=== PATIENT | male | born 2000 | race Asian ===

== ENCOUNTER 2024-04-15 19:43 | Emergency (ER) | payer OTHER ==
[~2024-04-15] VITALS: Ht 170.2 cm; Wt 68.0 kg
[2024-04-15 19:47] VITALS: O2SAT 99
[2024-04-15] MEDS ORDERED: LIDO700A15 TP (21:32)
[2024-04-15] MEDS ORDERED: NAPR-1176 MT (21:32)
[2024-04-15] MEDS: KETOROLAC 15MG/ML VIAL IM ONE (21:36)
[2024-04-15 21:45] VITALS: BP 114/67; PULSE 85; RESP 17; TEMP 36.94740; O2SAT 100
== END 2024-04-15 23:53 | disposition home or self-care (01) ==
LOC: ER 19:43
DX: S02.5XXA Fracture of tooth (traumatic), initial encounter for closed fracture (principal); M79.642 Pain in left hand; M79.641 Pain in right hand; Z79.1 Long term (current) use of non-steroidal anti-inflammatories (NSAID); W18.39XA Other fall on same level, initial encounter; Y93.89 Activity, other specified; Y92.89 Other specified places as the place of occurrence of the external cause; Y99.8 Other external cause status
CPT/HCPCS: 99284; 71100; 73130; 73564; 96372; J1885